=== PATIENT | male | born 1955 | race African-American/Black ===

== ENCOUNTER 2024-10-11 10:28 | Inpatient (IN) | payer BC, MEDICARE ==
[2024-10-11] VITALS (11 sets, daily range): BP systolic 121–150; BP diastolic 69–105; PULSE 77–95; RESP 20–29; TEMP 36.8–36.9; O2SAT 94–97
[~2024-10-11] VITALS: Ht 180.3 cm; Wt 108.9 kg
[2024-10-11 11:43] LABS: CHLORIDE 101 mEq/L (98-107); POTASSIUM 4.7 mEq/L (3.5-5.1); SODIUM 135 mEq/L (136-145)
[2024-10-11] MEDS: ASPIRIN 81MG TABLET PO ONE (11:43)
[2024-10-11] MEDS: FUROSEMIDE 40MG/4ML VIAL IVP ONE (11:43)
[2024-10-11 11:44] LABS: CARBON DIOXIDE 26 mEq/L (21-32)
[2024-10-11] MEDS: NITROGLYCERIN 50MG PREMIX 250 ML IV ONE (11:44)
[2024-10-11 11:45] LABS: CALCIUM 9.4 mg/dL (8.7-10.4)
[2024-10-11 11:48] LABS: BASOPHILS % 0.4 % (0.0-2.0); EOSINOPHILS % 0.4 % (0.0-5.0); HEMATOCRIT. 41.9 % (42.0-52.0); HEMOGLOBIN. 13.5 g/dL (14.0-18.0); LYMPHOCYTES % 9.4 % (20.0-50.0); MEAN CORPUSCULAR HEMOGLOBIN 27.3 pg (28.0-32.0); MEAN CORPUSCULAR HGB CONC 32.2 g/dL (31.0-37.0); MEAN CORPUSCULAR VOLUME 84.7 fL (80.0-94.0); MONOCYTES % 6.2 % (2.0-8.0); NEUTROPHILS % 83.6 % (40.0-76.0); PLATELET 225 x1000/uL (130-400); RED BLOOD CELL COUNT 4.95 mill/uL (4.7-6.1); RED CELL DISTRIBUTION WIDTH 16.2 % (11.6-14.6); WHITE BLOOD COUNT 13.8 x1000/uL (4.5-11.0)
[2024-10-11 11:49] LABS: CREATININE 1.5 mg/dL (0.6-1.3); GLUCOSE 279 mg/dL (70-105); UREA NITROGEN BLOOD 18 mg/dL (9-23)
[2024-10-11 11:50] LABS: INR 1.2; PROTHROMBIN TIME 12.4 sec (9.6-11.0)
[2024-10-11 12:34] LABS: TROPONIN I HIGH SENSITIVITY 24 ng/L (3.0-53)
[2024-10-11] MEDS ORDERED: DEXTROSE 50% WATER 50ML SYRINGE IV PRN (16:00)
[2024-10-11] MEDS ORDERED: ONDANSETRON HCL 4MG/2ML INJ IV PRN (16:00)
[2024-10-11] MEDS ORDERED: ACETAMINOPHEN 325MG TABLET PO PRN (16:00)
[2024-10-11 16:13] LABS: CLARITY URINE CLEAR (CLEAR); GLUCOSE URINE TRACE (NEGATIVE); KETONES URINE NEGATIVE (NEGATIVE); LEUKOCYTE ESTERASE URINE NEGATIVE (NEGATIVE); NITRITE URINE NEGATIVE (NEGATIVE); OCCULT BLOOD URINE NEGATIVE (NEGATIVE); PROTEIN URINE 2+ (NEGATIVE); UROBILINOGEN URINE 0.2 E.U./dL (0.2-1.0)
[2024-10-11] MEDS: CEFTRIAXONE 1GM/50ML 50 ML IV SCH (16:30)
[2024-10-11 16:58] LABS: COLOR URINE STRAW (YELLOW)
[2024-10-11] MEDS: BLOOD SUGAR DIAGNOSTIC STRIP TEST SCH (17:00)
[2024-10-11 17:03] LABS: BACTERIA URINE NONE SEEN; HYALINE CASTS URINE 0-5 /lpf; RBC URINE NONE SEEN /hpf (0-2); SQUAMOUS EPITHELIAL CELL URINE RARE /lpf (RARE/1+); WBC URINE NONE SEEN /hpf (0-2)
[2024-10-11] MEDS: APIXABAN 5 MG TABLET PO SCH (21:05)
[2024-10-11] MEDS: INSULIN LISPRO 100 UNITS/ML SUBCUT SCH (21:07)
[2024-10-11] MEDS ORDERED: ATOR-2 PO (22:49)
[2024-10-11] MEDS ORDERED: METO-411 PO (22:49)
[2024-10-11] MEDS ORDERED: GLIP5TAB22 PO (22:49)
[2024-10-11] MEDS ORDERED: PROM6.2533 PO (22:49)
[2024-10-11] MEDS ORDERED: FURO20TA4 PO (22:49)
[2024-10-11] MEDS ORDERED: METF-416 PO (22:49)
[2024-10-11] MEDS ORDERED: BUDE10.3 PO (22:49)
[2024-10-11] MEDS ORDERED: LISINOP/HCTZ (22:49)
[2024-10-11] MEDS ORDERED: APIX5TAB PO (22:49)
[2024-10-11] MEDS ORDERED: AMLO5TAB88 PO (22:49)
[2024-10-11] MEDS ORDERED: AMMO140C2 TP (22:49)
[2024-10-12] VITALS (41 sets, daily range): BP systolic 109–171; BP diastolic 61–156; PULSE 60–100; RESP 13–27; TEMP 36.8–37.5; O2SAT 94–100
[2024-10-12] MEDS: CLINDAMYCIN 600MG PREMIX 50 ML IV SCH (01:27)
[2024-10-12 06:20] LABS: BASOPHILS % 0.5 % (0.0-2.0); EOSINOPHILS % 0.8 % (0.0-5.0); HEMATOCRIT. 40.3 % (42.0-52.0); HEMOGLOBIN. 13.2 g/dL (14.0-18.0); LYMPHOCYTES % 16.7 % (20.0-50.0); MEAN CORPUSCULAR HEMOGLOBIN 27.7 pg (28.0-32.0); MEAN CORPUSCULAR HGB CONC 32.9 g/dL (31.0-37.0); MEAN CORPUSCULAR VOLUME 84.4 fL (80.0-94.0); MEAN PLATELET VOLUME 7.9 fl (7.4-10.4); MONOCYTES % 9.9 % (2.0-8.0); NEUTROPHILS % 72.1 % (40.0-76.0); PLATELET 197 x1000/uL (130-400); RED BLOOD CELL COUNT 4.77 mill/uL (4.7-6.1); RED CELL DISTRIBUTION WIDTH 16.8 % (11.6-14.6); WHITE BLOOD COUNT 6.5 x1000/uL (4.5-11.0)
[2024-10-12 06:25] LABS: CHLORIDE 104 mEq/L (98-107); POTASSIUM 4.1 mEq/L (3.5-5.1); SODIUM 140 mEq/L (136-145)
[2024-10-12 06:26] LABS: CALCIUM 9.8 mg/dL (8.7-10.4); CARBON DIOXIDE 28 mEq/L (21-32)
[2024-10-12 06:31] LABS: CREATININE 1.1 mg/dL (0.6-1.3); GLUCOSE 153 mg/dL (70-105); UREA NITROGEN BLOOD 17 mg/dL (9-23)
[2024-10-12 06:49] LABS: HEPATITIS B SURFACE ANTIGEN NEGATIVE (Negative)
[2024-10-12 07:10] LABS: HEPATITIS C AB NON REACTIVE (Neg) (Negative)
[2024-10-12] MEDS: FUROSEMIDE 40MG/4ML VIAL IVP SCH (09:26)
[2024-10-12] MEDS: PANTOPRAZOLE SODIUM 40 MG/VIAL IV SCH (09:26)
[2024-10-12] MEDS: METOPROLOL SUCCINATE 50MG ER TABLET PO SCH (09:31)
[2024-10-12] MEDS: AMLODIPINE 5MG TABLET PO SCH (09:32)
[2024-10-12] MEDS ORDERED: LIDOCAINE HCL 1% 10 MG/ML 10ML VIAL ONE (13:58)
[2024-10-12] MEDS: CEFTRIAXONE 1GM/50ML 50 ML IV SCH (16:00)
[2024-10-12] MEDS: ATORVASTATIN CALCIUM 40MG TABLET PO SCH (21:16)
[2024-10-13] VITALS (56 sets, daily range): BP systolic 109–153; BP diastolic 63–101; PULSE 57–81; RESP 14–24; TEMP 36.4–37.3; O2SAT 91–100
[2024-10-13 06:03] LABS: BASOPHILS % 0.7 % (0.0-2.0); EOSINOPHILS % 1.2 % (0.0-5.0); HEMATOCRIT. 40.7 % (42.0-52.0); HEMOGLOBIN. 13.5 g/dL (14.0-18.0); LYMPHOCYTES % 18.9 % (20.0-50.0); MEAN CORPUSCULAR HEMOGLOBIN 27.8 pg (28.0-32.0); MEAN CORPUSCULAR HGB CONC 33.1 g/dL (31.0-37.0); MEAN PLATELET VOLUME 7.9 fl (7.4-10.4); MONOCYTES % 12.3 % (2.0-8.0); NEUTROPHILS % 66.9 % (40.0-76.0); PLATELET 199 x1000/uL (130-400); RED BLOOD CELL COUNT 4.85 mill/uL (4.7-6.1); RED CELL DISTRIBUTION WIDTH 16.6 % (11.6-14.6); WHITE BLOOD COUNT 5.6 x1000/uL (4.5-11.0)
[2024-10-13 06:15] LABS: CARBON DIOXIDE 30 mEq/L (21-32); CHLORIDE 104 mEq/L (98-107); POTASSIUM 4.3 mEq/L (3.5-5.1); SODIUM 141 mEq/L (136-145)
[2024-10-13 06:21] LABS: CREATININE 1.1 mg/dL (0.6-1.3); GLUCOSE 172 mg/dL (70-105); UREA NITROGEN BLOOD 18 mg/dL (9-23)
[2024-10-13] MEDS: EMPAGLIFLOZIN 10MG TABLET PO SCH (09:12)
[2024-10-13] MEDS: ENOXAPARIN 120MG/0.8ML SYR SUBCUT SCH ×2 (09:13→20:43)
[2024-10-13] MEDS: LOSARTAN 25 MG TABLET PO SCH (09:14)
[2024-10-13 11:26] LABS: INR 1.1
[2024-10-13] MEDS: SILVER SULFADIAZINE 1% CREAM 50GM TOP SCH (12:46)
[2024-10-14] VITALS (38 sets, daily range): BP systolic 98–131; BP diastolic 54–93; PULSE 59–78; RESP 10–28; TEMP 36.6–37.2; O2SAT 92–100
[2024-10-14 05:40] LABS: CARBON DIOXIDE 28 mEq/L (21-32); CHLORIDE 105 mEq/L (98-107); POTASSIUM 3.9 mEq/L (3.5-5.1); SODIUM 141 mEq/L (136-145)
[2024-10-14 05:41] LABS: CALCIUM 10.4 mg/dL (8.7-10.4)
[2024-10-14 05:45] LABS: CREATININE 1.2 mg/dL (0.6-1.3)
[2024-10-14 05:46] LABS: GLUCOSE 151 mg/dL (70-105)
[2024-10-14 05:47] LABS: UREA NITROGEN BLOOD 19 mg/dL (9-23)
[2024-10-14 05:48] LABS: BASOPHILS % 0.7 % (0.0-2.0); EOSINOPHILS % 1.4 % (0.0-5.0); HEMATOCRIT. 43.3 % (42.0-52.0); HEMOGLOBIN. 14.2 g/dL (14.0-18.0); INR 1.1; LYMPHOCYTES % 25.5 % (20.0-50.0); MEAN CORPUSCULAR HEMOGLOBIN 27.9 pg (28.0-32.0); MEAN CORPUSCULAR HGB CONC 32.9 g/dL (31.0-37.0); MEAN CORPUSCULAR VOLUME 84.8 fL (80.0-94.0); MONOCYTES % 12.5 % (2.0-8.0); NEUTROPHILS % 59.9 % (40.0-76.0); PLATELET 222 x1000/uL (130-400); PROTHROMBIN TIME 11.6 sec (9.6-11.0); RED CELL DISTRIBUTION WIDTH 16.3 % (11.6-14.6); WHITE BLOOD COUNT 5.2 x1000/uL (4.5-11.0)
[2024-10-14 05:49] LABS: PHOSPHORUS 4.3 mg/dL (2.5-4.9)
[2024-10-14] MEDS ORDERED: IODIXANOL 320MG/ML 100 ML BOTTLE IV ONE ×2 (09:53→11:11)
[2024-10-14] MEDS ORDERED: HEPARIN 1000 UNITS/ML 10ML ONE ×2 (09:53→11:06)
[2024-10-14] MEDS ORDERED: LIDOCAINE HCL 1% 20ML VIAL ONE (09:53)
[2024-10-14] MEDS ORDERED: VERAPAMIL HCL 2.5 MG/1 ML 2ML VIAL IV ONE (09:53)
[2024-10-14] MEDS ORDERED: DIPHENHYDRAMINE 50MG/ML VIAL ONE (10:13)
[2024-10-14] MEDS ORDERED: MIDAZOLAM HCL 2 MG/2 ML VIAL ONE (10:14)
[2024-10-14] MEDS ORDERED: FENTANYL CITRATE/PF 50MCG/ML 2ML VIAL ONE (10:14)
[2024-10-14] MEDS ORDERED: CLOPIDOGREL 75MG TABLET ONE (11:19)
[2024-10-14] MEDS ORDERED: ASPIRIN 325MG TABLET ONE (11:33)
[2024-10-14] MEDS ORDERED: ATROPINE SULFATE 1MG/10ML SYR IV PRN (12:00)
[2024-10-14] MEDS ORDERED: ACETAMINOPHEN 325MG TABLET PO PRN (12:00)
[2024-10-14] MEDS: SODIUM CHLORIDE 0.45% 250 ML IV SCH (13:39)
[2024-10-15] VITALS: BP 121/69; PULSE 63; RESP 19; TEMP 36.4; O2SAT 91
[2024-10-15 04:00] VITALS: BP 122/61; PULSE 63; RESP 0; TEMP 36.9; O2SAT 93
[2024-10-15 07:05] LABS: BASOPHILS % 0.6 % (0.0-2.0); EOSINOPHILS % 2.2 % (0.0-5.0); HEMATOCRIT. 43.9 % (42.0-52.0); HEMOGLOBIN. 14.3 g/dL (14.0-18.0); LYMPHOCYTES % 17.8 % (20.0-50.0); MEAN CORPUSCULAR HEMOGLOBIN 27.5 pg (28.0-32.0); MEAN CORPUSCULAR HGB CONC 32.6 g/dL (31.0-37.0); MEAN CORPUSCULAR VOLUME 84.3 fL (80.0-94.0); MEAN PLATELET VOLUME 7.9 fl (7.4-10.4); MONOCYTES % 8.5 % (2.0-8.0); NEUTROPHILS % 70.9 % (40.0-76.0); PLATELET 228 x1000/uL (130-400); RED BLOOD CELL COUNT 5.21 mill/uL (4.7-6.1); RED CELL DISTRIBUTION WIDTH 16.8 % (11.6-14.6); WHITE BLOOD COUNT 6.1 x1000/uL (4.5-11.0)
[2024-10-15 07:23] LABS: CHLORIDE 101 mEq/L (98-107); SODIUM 138 mEq/L (136-145)
[2024-10-15 07:24] LABS: CALCIUM 10.2 mg/dL (8.7-10.4); CARBON DIOXIDE 29 mEq/L (21-32)
[2024-10-15 07:29] LABS: CREATININE 1.3 mg/dL (0.6-1.3); GLUCOSE 141 mg/dL (70-105)
[2024-10-15 07:30] LABS: UREA NITROGEN BLOOD 23 mg/dL (9-23)
[2024-10-15 08:00] VITALS: BP 126/88; PULSE 78; RESP 25; TEMP 36.8; O2SAT 98
[2024-10-15] MEDS ORDERED: LOSA25TA26 MT (08:21)
[2024-10-15] MEDS ORDERED: METO-411 MT (08:21)
[2024-10-15] MEDS ORDERED: FURO-151 MT (08:21)
[2024-10-15] MEDS ORDERED: EMPA10TA PO (08:21)
[2024-10-15] MEDS ORDERED: CLOP-31 PO (08:21)
[2024-10-15] MEDS ORDERED: POTA-205 MT (08:21)
[2024-10-15] MEDS ORDERED: AMOX1TAB16 MT (08:22)
[2024-10-15] MEDS: CLOPIDOGREL 75MG TABLET PO SCH (09:10)
[2024-10-15] MEDS: APIXABAN 5 MG TABLET PO SCH (09:10)
[2024-10-15 10:51] VITALS: BP 126/88; PULSE 90; TEMP 98.3; O2SAT 89
== END 2024-10-15 12:52 | disposition home or self-care (01) | DRG 321 ==
LOC: ER 10:28 → CVICU 15:51 → EDBEDREQTM 16:01 → EDBEDREQ 16:01 → EDBEDREQSVC 16:01 → ENRESERV 18:22 → 3WST 10-14 18:59
PROVIDERS: ADMIT Internal Medicine; ATTEND Internal Medicine
PROC: 5A09357 Assistance with Respiratory Ventilation, Less than 24 Consecutive Hours, Continuous Positive Airway Pressure (ICD-10-PCS; 2024-10-11)
PROC: 02HV33Z Insertion of Infusion Device into Superior Vena Cava, Percutaneous Approach (ICD-10-PCS; 2024-10-12)
PROC: B548ZZA Ultrasonography of Superior Vena Cava, Guidance (ICD-10-PCS; 2024-10-12)
PROC: 027034Z Dilation of Coronary Artery, One Artery with Drug-eluting Intraluminal Device, Percutaneous Approach (ICD-10-PCS; principal; 2024-10-14)
PROC: B240ZZ3 Ultrasonography of Single Coronary Artery, Intravascular (ICD-10-PCS; 2024-10-14)
PROC: 4A023N7 Measurement of Cardiac Sampling and Pressure, Left Heart, Percutaneous Approach (ICD-10-PCS; 2024-10-14)
PROC: B211YZZ Fluoroscopy of Multiple Coronary Arteries using Other Contrast (ICD-10-PCS; 2024-10-14)
DX: I13.0 Hypertensive heart and chronic kidney disease with heart failure and stage 1 through stage 4 chronic kidney disease, or unspecified chronic kidney disease (principal); I50.23 Acute on chronic systolic (congestive) heart failure; N17.0 Acute kidney failure with tubular necrosis; J96.01 Acute respiratory failure with hypoxia; E87.1 Hypo-osmolality and hyponatremia; L03.116 Cellulitis of left lower limb; L97.829 Non-pressure chronic ulcer of other part of left lower leg with unspecified severity; I20.0 Unstable angina; I42.0 Dilated cardiomyopathy; E78.5 Hyperlipidemia, unspecified; M16.11 Unilateral primary osteoarthritis, right hip; N18.9 Chronic kidney disease, unspecified; E11.22 Type 2 diabetes mellitus with diabetic chronic kidney disease; I48.0 Paroxysmal atrial fibrillation; E11.51 Type 2 diabetes mellitus with diabetic peripheral angiopathy without gangrene; D64.9 Anemia, unspecified; I25.5 Ischemic cardiomyopathy; I87.8 Other specified disorders of veins; Z79.01 Long term (current) use of anticoagulants
CPT/HCPCS: 36415; 36573; 71045; 80048; 81003; 82962; 83036; 83605; 83735; 83880; 84100; 84484; 85025; 85347; 86705; 87070; 87077; 87186; 87340; 92928; 92978; 93005; 93306; 93458; 93970; 96365; 96375; 99291; A4606; C1725; C1753; C1769; C1874; C1887; C1893; J0696; J1200; J1644; J1650; J1815; J1940; J2003; J2250; J2470; J3010; J3490; Q9967

== ENCOUNTER 2025-05-08 00:48 | Inpatient (IN) | payer BC, MEDICARE ==
[2025-05-08] VITALS (15 sets, daily range): BP systolic 134–162; BP diastolic 77–116; PULSE 64–88; RESP 15–26; TEMP 36.2–37.1; O2SAT 80–98
[~2025-05-08] VITALS: Ht 182.9 cm; Wt 108.0 kg
[~2025-05-08 00:48] MED LIST: AMMO140C2 TP; AMOX1TAB16 MT; APIX5TAB PO; ATOR-2 PO; BUDE10.3 PO; CLOP-31 PO; EMPA10TA PO; FURO-151 MT; FURO20TA4 PO; GLIP5TAB22 PO; LOSA25TA26 MT; METF-416 PO; METO-411 MT; METO-411 PO; POTA-205 MT; PROM6.2533 PO
[2025-05-08] MEDS: NITROGLYCERIN 50MG PREMIX 250 ML IV ONE ×2 (01:25)
[2025-05-08] MEDS: FUROSEMIDE 40MG/4ML VIAL IVP ONE (01:55)
[2025-05-08 02:34] LABS: CREATININE 1.3 mg/dL (0.6-1.3); UREA NITROGEN BLOOD 14 mg/dL (9-23)
[2025-05-08 03:28] LABS: BASOPHILS % 1.1 % (0.0-2.0); EOSINOPHILS % 2.2 % (0.0-5.0); HEMATOCRIT. 49.4 % (42.0-52.0); HEMOGLOBIN. 16.0 g/dL (14.0-18.0); LYMPHOCYTES % 27.0 % (20.0-50.0); MEAN PLATELET VOLUME 8.5 fl (7.4-10.4); MONOCYTES % 6.4 % (2.0-8.0); NEUTROPHILS % 63.3 % (40.0-76.0); PLATELET 237 x1000/uL (130-400); RED BLOOD CELL COUNT 5.52 mill/uL (4.7-6.1); RED CELL DISTRIBUTION WIDTH 14.8 % (11.6-14.6)
[2025-05-08] MEDS ORDERED: DEXTROSE 50% WATER 50ML SYRINGE IV PRN (05:30)
[2025-05-08] MEDS: HYDROCODONE/ACETAMINOPHEN 5/325MG TABLET PO PRN (06:53)
[2025-05-08] MEDS: BLOOD SUGAR DIAGNOSTIC STRIP TEST SCH (06:53)
[2025-05-08] MEDS: METFORMIN HCL 500MG TABLET PO SCH (09:19)
[2025-05-08] MEDS: POTASSIUM CHLORIDE 20MEQ TABLET SR PO SCH (09:19)
[2025-05-08] MEDS: METOPROLOL TARTRATE 50MG TABLET PO SCH (09:23)
[2025-05-08] MEDS: LOSARTAN 50 MG TABLET PO SCH (09:23)
[2025-05-08] MEDS: FUROSEMIDE 40MG/4ML VIAL IV SCH (09:23)
[2025-05-08] MEDS: EMPAGLIFLOZIN 10MG TABLET PO SCH (09:24)
[2025-05-08] MEDS: CLOPIDOGREL 75MG TABLET PO SCH (09:25)
[2025-05-08] MEDS: APIXABAN 5 MG TABLET PO SCH (09:25)
[2025-05-08] MEDS: INSULIN LISPRO 100 UNITS/ML SUBCUT SCH (09:27)
[2025-05-08 11:17] LABS: BASOPHILS % 0.5 % (0.0-2.0); EOSINOPHILS % 1.0 % (0.0-5.0); HEMATOCRIT. 45.8 % (42.0-52.0); HEMOGLOBIN. 15.1 g/dL (14.0-18.0); LYMPHOCYTES % 15.3 % (20.0-50.0); MEAN PLATELET VOLUME 8.3 fl (7.4-10.4); MONOCYTES % 7.2 % (2.0-8.0); NEUTROPHILS % 76.0 % (40.0-76.0); PLATELET 212 x1000/uL (130-400); RED BLOOD CELL COUNT 5.18 mill/uL (4.7-6.1); RED CELL DISTRIBUTION WIDTH 14.4 % (11.6-14.6)
[2025-05-08 11:22] LABS: CREATININE 1.2 mg/dL (0.6-1.3)
[2025-05-08 11:23] LABS: LDL CHOLESTEROL 76 mg/dL (5-100); TRIGLYCERIDE 133 mg/dL (0-150); UREA NITROGEN BLOOD 13 mg/dL (9-23)
[2025-05-08] MEDS: ATORVASTATIN CALCIUM 40MG TABLET PO SCH (20:35)
[2025-05-09] VITALS (7 sets, daily range): BP systolic 105–148; BP diastolic 62–78; PULSE 55–73; RESP 14–20; TEMP 36.1–36.7; O2SAT 70–98
[2025-05-09 18:37] LABS: CREATININE 1.2 mg/dL (0.6-1.3); UREA NITROGEN BLOOD 17 mg/dL (9-23)
[2025-05-10] VITALS: BP 101/51; PULSE 59; RESP 20; TEMP 36.3; O2SAT 98
[2025-05-10 04:00] VITALS: BP 120/58; PULSE 63; RESP 20; TEMP 36.2; O2SAT 100
[2025-05-10 08:00] VITALS: BP 122/58; PULSE 69; RESP 17; TEMP 36.1; O2SAT 99
[2025-05-10] MEDS ORDERED: METO-539 PO (09:38)
[2025-05-10] MEDS ORDERED: LIP40 PO (09:38)
[2025-05-10] MEDS ORDERED: FURO80TA87 MT (09:38)
[2025-05-10] MEDS ORDERED: APIX5TAB PO (09:38)
[2025-05-10] MEDS ORDERED: LOSA50TA41 PO (09:38)
[2025-05-10] MEDS ORDERED: SPIR25TA6 MT (09:39)
[2025-05-10 10:15] VITALS: BP 122/58; PULSE 69; RESP 17; TEMP 98
[2025-05-10 11:19] VITALS: BP 122/70; PULSE 68; RESP 18
== END 2025-05-10 12:33 | disposition home or self-care (01) | DRG 291 ==
LOC: ER 00:48 → EDBEDREQSVC 02:23 → EDBEDREQ 02:30 → EDBEDREQTM 02:30 → ENRESERV 02:41 → 5EST 03:01 → 6WST 05-09 03:47
PROVIDERS: ADMIT Internal Medicine; ATTEND Internal Medicine
PROC: 5A09357 Assistance with Respiratory Ventilation, Less than 24 Consecutive Hours, Continuous Positive Airway Pressure (ICD-10-PCS; principal; 2025-05-08)
DX: I11.0 Hypertensive heart disease with heart failure (principal); I50.23 Acute on chronic systolic (congestive) heart failure; J96.01 Acute respiratory failure with hypoxia; E11.65 Type 2 diabetes mellitus with hyperglycemia; I16.0 Hypertensive urgency; I42.0 Dilated cardiomyopathy; I25.10 Atherosclerotic heart disease of native coronary artery without angina pectoris; I48.0 Paroxysmal atrial fibrillation; Z86.73 Personal history of transient ischemic attack (TIA), and cerebral infarction without residual deficits; I25.5 Ischemic cardiomyopathy; T50.1X6A Underdosing of loop [high-ceiling] diuretics, initial encounter; Y92.89 Other specified places as the place of occurrence of the external cause; Z95.5 Presence of coronary angioplasty implant and graft
CPT/HCPCS: 36415; 71045; 80048; 80061; 82962; 83880; 85025; 93005; 93308; 94070; 94640; 94660; 94664; 96374; 99285; A4606; J1815; J1938; J3490